=== PATIENT | male | born 1960 | race Caucasian/White ===

== ENCOUNTER 2016-04-17 09:49 | Outpatient (CLI) ==
[2015-11-26 13:37] VITALS: BMI 25.0
--- NOTE | 2016-04-17 11:37 | CT ---
EXAM: CT chest without contrast. HISTORY: Cough and chest congestion for 1 month. COMPARISON: 07/21/2015. TECHNIQUE: Multiple axial images of the chest were obtained without intravenous contrast. Images w ere reformatted in the sagittal and coronal planes. FINDINGS: Nonenlarged mediastinal and axillary lymph nodes are present. Overall evaluation for lym phadenopathy is limited due to lack of intravenous contrast. Heart size is normal. There is no per icardial effusion. Calcified granulomatous changes present. Very mild emphysematous changes again noted. No consolida tion, pleural effusion or pneumothorax identified. Limited images of the upper abdomen demonstrate a lateral left hepatic lobe cyst. Exophytic low-den sity left renal lesion measures 1.9 x 1.2 cm on axial image 63 which measures 17 HU. No acute osseo us abnormality identified. IMPRESSION: 1. No acute abnormality of the chest. 2. Indeterminate exophytic left renal lesion. Correlate with ultrasound.
== END 2016-04-17 09:50 | disposition home or self-care (01) ==
LOC: RAD 09:49
PROVIDERS: ATTEND General Practice
DX: R05 Cough (principal); I73.9 Peripheral vascular disease, unspecified; I10 Essential (primary) hypertension; Z72.0 Tobacco use; Z95.9 Presence of cardiac and vascular implant and graft, unspecified; Z98.890 Other specified postprocedural states

== ENCOUNTER 2016-04-24 07:39 | Outpatient (CLI) ==
[2015-11-26 13:37] VITALS: BMI 25.0
--- NOTE | 2016-04-24 09:11 | US ---
EXAM: Renal ultrasound HISTORY: Disorder of kidney and ureter, unspecified COMPARISON: CT chest 04/17/2016 TECHNIQUE: Renal ultrasound was performed FINDINGS: Right kidney measures 4.5 x 3.3 x 10.4 cm. Left kidney measures 6.1 x 4.7 x 0.8 cm. Ángel al cortical echogenicity is normal. No hydronephrosis or renal calculus large enough to cause acous tic shadowing. There is a 1.0 x 0.8 x 1.0 cm exophytic cystic lesion arising from the left superior kidney corresponding to the finding on CT, with internal echoes/complexity. Bladder is decompressed and not evaluated. IMPRESSION: 1. 1 cm complex cystic lesion left superior kidney, corresponding to the finding on CT, is indeterm inate. Correlation with CT or MRI renal protocol recommended. 2. Hydronephrosis.
== END 2016-04-24 07:40 | disposition home or self-care (01) ==
LOC: RAD 07:39
PROVIDERS: ATTEND General Practice
DX: N28.9 Disorder of kidney and ureter, unspecified (principal)
CPT/HCPCS: 76770

== ENCOUNTER 2016-04-29 16:29 | Outpatient (CLI) ==
[2015-11-26 13:37] VITALS: BMI 25.0
[2016-04-29 16:56] LABS: BASOPHILS # (AUTO) 0.1 K/uL (0-0.2); BASOPHILS % (AUTO) 0.6 % (0.0-3.0); EOSINOPHILS # (AUTO) 0.4 K/ul (0.0-0.7); EOSINOPHILS % (AUTO) 5.4 % (0.0-7.0); HEMATOCRIT 46.2 % (42.0-52.0); IMMATURE GRANULOCYTE % (AUTO) 0.4 % (0.0-5.0); LYMPHOCYTES # (AUTO) 2.2 K/uL (0.60-3.4); LYMPHOCYTES % (AUTO) 28.1 (10.0-50.0); MEAN CORPUSCULAR HEMOGLOBIN 31.7 pg (27.0-31.0); MEAN CORPUSCULAR HGB CONC 34.6 (31.8-35.4); MEAN CORPUSCULAR VOLUME 91.7 fl (80.0-94.0); MONOCYTES # (AUTO) 0.7 K/uL (0.4-2.0); MONOCYTES % (AUTO) 8.9 (0-10); NEUTROPHILS # (AUTO) 4.4 K/ul (2.0-6.9); NEUTROPHILS % (AUTO) 56.6; PLATELET COUNT 312 10^3/uL (140-440); RED BLOOD COUNT 5.04 10^6/ul (4.70-6.10); WHITE BLOOD COUNT 7.71 K/ul (4.2-10.2)
[2016-04-29 17:44] LABS: ALBUMIN/GLOBULIN RATIO 1.33; ANION GAP 15.9; BILIRUBIN,TOTAL 0.51 mg/dL (0.00-1.20); BUN/CREATININE RATIO 10.66; CALCIUM 9.4 mg/dL (8.2-10.2); CHOL/HDL RATIO 5.8 (4.5-6.4); CREATININE 0.75 mg/dL (0.60-1.10); POTASSIUM 3.9 mmol/L (3.5-5.1)
== END 2016-04-29 16:30 | disposition home or self-care (01) ==
LOC: LAB 16:29
PROVIDERS: ATTEND General Practice
DX: I10 Essential (primary) hypertension (principal); R73.9 Hyperglycemia, unspecified; R05 Cough; I73.9 Peripheral vascular disease, unspecified; G62.9 Polyneuropathy, unspecified; J44.9 Chronic obstructive pulmonary disease, unspecified; R06.02 Shortness of breath; Z79.899 Other long term (current) drug therapy; Z72.0 Tobacco use; Z95.9 Presence of cardiac and vascular implant and graft, unspecified; Z98.890 Other specified postprocedural states
CPT/HCPCS: 36415; 80053; 80061; 81001; 83036; 83880; 84443; 85025

== ENCOUNTER 2016-05-21 16:19 | Outpatient (CLI) | payer OTHER ==
[2015-11-26 13:37] VITALS: BMI 25.0
[2016-05-21 17:13] LABS: FLU INTERNAL QC INTERNAL QC VALID; RAPID FLU A NEGATIVE (NEGATIVE); RAPID FLU B NEGATIVE (NEGATIVE)
== END 2016-05-21 16:20 | disposition home or self-care (01) ==
LOC: LAB 16:19
PROVIDERS: ATTEND General Practice
DX: J02.9 Acute pharyngitis, unspecified (principal); R05 Cough
CPT/HCPCS: 87651; 87804; 87880

== ENCOUNTER 2016-06-11 08:27 | Outpatient (CLI) ==
[2015-11-26 13:37] VITALS: BMI 25.0
--- NOTE | 2016-06-11 14:36 | MRI ---
EXAM: Lumbar spine MRI without contrast. HISTORY: Lumbar radiculopathy. COMPARISON: Lumbar spine MRI 08/19/2013. TECHNIQUE: Multiplanar, multisequence MR images were acquired of the lumbar spine without contrast. FINDINGS: Five lumbar-type vertebra are present. There is minor thoracolumbar dextroscoliosis cent ered at L1-2 and minor levoscoliosis at L3-4. There are postoperative changes of an anterior and po sterior longitudinal interbody fusion at L5-S1. Metallic artifact is present consistent with anterio r interbody screw and plate fixation and posterior posterior pedicle screw and papi fixation. This p roduces distortion which limits evaluation at this level. The lumbar vertebra are generally normal i n height and intrinsic bone marrow signal. There is minor lumbar ventral spondylosis. There is end plate irregularity at T11-12 and T12-L1 and small chronic Schmorl's nodes are present from T11 to L2 . At L1-2, there is mild endplate irregularity with moderate disc space narrowing and disc desiccat ion. Mild endplate irregularity is present at L2-3 and there is mild disc space narrowing at L4-5. Conus medullaris ends at L2 and has normal signal intensity. The partially visualized liver, spleen, adrenal glands and kidneys are unremarkable. The probable l eft renal cysts is not identified on the current study. T12-L1: The intervertebral disc is normal. L1-2: The intervertebral disc is normal. L2-3: There is a minor disc bulge that minimally narrows the inferior left neural foramen and mild bilateral hypertrophic facet arthropathy and ligamentum flavum hypertrophy. There is no central can al stenosis. L3-4: There is a minor physiologic disc bulge and mild bilateral hypertrophic facet arthropathy and ligamentum flavum hypertrophy. There is mild to moderate bilateral foraminal stenosis. L4-5: There is a mild disc bulge that is asymmetric to the right and bilateral facet hypertrophy. Metallic artifact produces distortion which limits evaluation of the disc and neural foramina. Ther e is probable moderate bilateral foraminal stenosis. L5-S1: Metallic artifact produces distortion which limits evaluation at this level. There is a lef t lateral spondylitic ridge which narrows the foramen and causes probable moderate left foraminal st enosis. The right neural foramen cannot be evaluated. IMPRESSION: 1. Status post anterior and posterior spinal fusion at L5-S1. Metallic artifact produces distortio n which limits evaluation at this level. There is probable moderate left foraminal stenosis. 2. Mild to moderate bilateral L3-4 and probable moderate bilateral L4-5 and left L5-S1 foraminal st enosis. 3. No lumbar disc herniations. 4. Mild endplate irregularity with small chronic Schmorl's nodes from T11 to L2.
== END 2016-06-11 08:28 | disposition home or self-care (01) ==
LOC: RAD 08:27
PROVIDERS: ATTEND General Practice
DX: M54.17 Radiculopathy, lumbosacral region (principal)

== ENCOUNTER 2016-09-02 16:22 | Outpatient (CLI) ==
[2015-11-26 13:37] VITALS: BMI 25.0
[2016-09-02 17:06] LABS: ALBUMIN 3.9 g/dL (3.4-5.0); ALBUMIN/GLOBULIN RATIO 1.5; ANION GAP 12.5; BILIRUBIN,TOTAL 0.75 mg/dL (0.00-1.20); BUN/CREATININE RATIO 21.83; CALCIUM 8.4 mg/dL (8.2-10.2); CHOL/HDL RATIO 6.8 (4.5-6.4); CREATININE 0.87 mg/dL (0.60-1.10); POTASSIUM 4.5 mmol/L (3.5-5.1); TOTAL PROTEIN 6.5 g/dL (6.4-8.2)
== END 2016-09-02 16:23 | disposition home or self-care (01) ==
LOC: LAB 16:22
PROVIDERS: ATTEND General Practice
DX: M89.9 Disorder of bone, unspecified (principal); I10 Essential (primary) hypertension; I73.9 Peripheral vascular disease, unspecified; G62.9 Polyneuropathy, unspecified; N13.30 Unspecified hydronephrosis; N28.1 Cyst of kidney, acquired; R05 Cough; Z12.5 Encounter for screening for malignant neoplasm of prostate; Z79.899 Other long term (current) drug therapy; Z72.0 Tobacco use; Z98.890 Other specified postprocedural states; Z95.9 Presence of cardiac and vascular implant and graft, unspecified
CPT/HCPCS: 36415; 80053; 80061; 82306

== ENCOUNTER 2016-12-08 05:14 | Emergency (ER) | payer OTHER ==
[2016-12-08 05:21] VITALS: TEMP 97.6; BMI 29.3
[2016-12-08] MEDS ORDERED: ZOFRAN 4 MG/2 ML IM STA (05:37)
[2016-12-08] MEDS ORDERED: MORPHINE 2 MG/ML SYRINGE IM STA (05:37)
[2016-12-08] MEDS ORDERED: CATAPRES PO STA (05:37)
--- NOTE | 2016-12-08 05:42 | ED.PDOC ---
General ED Provider: Dr. KIMMIE SOLIZ Chief Complaint: Headache Stated Complaint: BP been elevated, having some headaches, no blurry vision. also has coughing, congested, no chest pain, not short of breath. Time Seen by Physician: 05:40 Mode of Arrival: Walk-In Information Source: Patient [facility] and Triage Documentation Reviewed and Agree: Yes Cardiovascular Complaint Exam - Hypertension Complaint/Exam Symptoms Are: Still present Timing: Constant Aggravating: Reports: None Alleviating: Reports: None Associated Signs and Symptoms: Denies: Chest pain, Vision changes, Anxiety, Recent stress, Headache, Numbness, Tingling, Weakness, Dizziness, Short of air, Swelling Related History: Reports: Similar episode Related Surgical History: Reports: None Cardiac Risk Factors: Reports: Hypertension Recent Change in Medications: No A/V Nicking: No Papilledema Present: No JVD Present: No Carotid Bruit Present: No Differential Diagnoses: Hypertension Quality Indicator For Non-Traumatic Chest Pain/Syncope: EKG Performed Review of Systems - Review Of Systems Constitutional: Reports: No symptoms Eyes: Reports: No symptoms Ears, Nose, Mouth, Throat: Reports: Nose discharge Respiratory: Reports: Cough Cardiac: Reports: No symptoms GI: Reports: No symptoms : Reports: No symptoms Musculoskeletal: Reports: No symptoms Skin: Reports: No symptoms Neurological: Reports: Headache Endocrine: Reports: No symptoms Hematologic/Lymphatic: Reports: No symptoms All Other Systems: Reviewed and Negative Past Medical History - Past Medical History Previously Healthy: Yes Endocrine: Reports: None Cardiovascular: Reports: Hypertension Respiratory: Reports: COPD Hematological: Reports: None Gastrointestinal: Reports: None Genitourinary: Reports: None Neuro/Psych: Reports: None Musculoskeletal: Reports: None Cancer: Reports: None - Surgical History General Surgical History: Reports: Back Surgery - Family History Family History: Reports: Unknown - Social History Smoking Status: Current every day smoker Smoking Cessation Counseling Time: > 3 min - 10 min Hx Substance Use: No Alcohol Screening: None - Immunizations Tetanus Shot up to Date: Yes Physical Exam - Physical Exam Appearance: Ill-appearing, Obese Eyes: NEMESIO, EOMI, Conjunctiva clear ENT: Ears normal, Nose normal, Oropharynx normal Respiratory: Airway patent, Breath sounds clear, Breath sounds equal, Respirations nonlabored Cardiovascular: RRR, Pulses normal, No rub, No murmur GI/: Soft, Nontender, No masses, Bowel sounds normal, No Organomegaly Musculoskeletal: Normal strength, ROM intact, No edema, No calf tenderness Skin: Warm, Dry, Normal color Neurological: Sensation intact, Motor intact, Reflexes intact, Cranial nerves intact, Alert, Oriented Psychiatric: Affect appropriate, Mood appropriate Interpretation - EKG Interpretation Time of EKG #1: 05:55 Rate: Normal Rhythm: Sinus Ectopy: None ST Segment: Normal Re-Evaluation - Re-Evaluation Time of Re-Evaluation: 06:22 Status: Improved Critical Care Note - Critical Care Note Total Time (mins): 0 Course - Course Hematology/Chemistry: 12/08/16 05:53 Orders, Labs, Meds: Lab Review 12/08/16 05:53 WBC 8.51 RBC 4.97 Hgb 15.8 Hct 45.9 MCV 92.4 MCH 31.8 H MCHC 34.4 RDW Coeff of Ricardo 12.6 Plt Count 284 Immature Gran % (Auto) 0.2 Neut % (Auto) 58.8 Lymph % (Auto) 25.0 Sheridan % (Auto) 10.8 H Eos % (Auto) 4.7 Baso % (Auto) 0.5 Immature Gran # (Auto) 0.0 Neut # 5.0 Lymph # 2.1 Sheridan # 0.9 Eos # 0.4 Baso # 0.0 Orders Category Date Time Status EKG-(ED ONLY) Stat CARDIO 12/08/16 06:21 Ordered CBC W/ AUTO DIFF Stat LAB 12/08/16 05:53 Completed COMPREHENSIVE METABOLIC PANEL Stat LAB 12/08/16 06:01 Received CREATINE KINASE Stat LAB 12/08/16 06:01 Received TROPONIN I Stat LAB 12/08/16 06:01 Received Clonidine HCl [Catapres] MEDS 12/08/16 05:37 Discontinued 0.2 mg PO ONCE STA Morphine Sulfate [Morphine 2 mg/ml Syringe] MEDS 12/08/16 05:37 Discontinued 2 mg IM ONCE STA Ondansetron HCl/Pf [Zofran 4 mg/2 ml] MEDS 12/08/16 05:37 Discontinued 4 mg IM ONCE STA CT HEAD W/O CONTRAST Stat RADS 12/08/16 05:37 Ordered Medications Discontinued Medications Generic Name Dose Route Start Last Admin Trade Name Freq PRN Reason Stop Dose Admin Clonidine 0.2 mg 12/08/16 05:37 12/08/16 06:19 Catapres PO 12/08/16 05:38 0.1 mg ONCE STA Administration Morphine Sulfate 2 mg 12/08/16 05:37 12/08/16 05:49 Morphine 2 Mg/Ml Syringe IM 12/08/16 05:38 2 mg ONCE STA Administration Ondansetron HCl 4 mg 12/08/16 05:37 12/08/16 05:46 Zofran 4 Mg/2 Ml IM 12/08/16 05:38 4 mg ONCE STA Administration Vital Signs: Temp Pulse Resp BP Pulse Ox 12/08/16 05:14 97.6 F 78 20 176/107 H 94 L JULIA Risk Score JULIA Risk Score: Risk Score Odds of by 30D 0 0.1 (0.1-0.2) 1 0.3 (0.2-0.3) 2 0.4 (0.3-0.5) 3 0.7 (0.6-0.9) 4 1.2 (1.0-1.5) 5 2.2 (1.9-2.6) 6 3.0 (2.5-3.6) 7 4.8 (3.8-6.1) Departure - Departure Time of Disposition: 06:25 Disposition: HOME SELF-CARE Discharge Problem: URTI (acute upper respiratory infection) Hypertension Qualifiers: Hypertension type: essential hypertension Qualified Code(s): I10 - Essential ( primary) hypertension Condition: Good Pt referred to PMD for follow-up: Yes Additional Instructions: Keep checking the BP Risk of stroke discussed Take medication with food Have f/u PMD Dr hunt in 3 days Prescriptions: Cephalexin [Keflex] 500 mg PO Q12HR #14 capsule Codeine/Promethazine Syrup [Phenergan with Codeine 6.25/10 mg/5 ml] 5 ml PO Q8H #1 bottle Prednisone 10 mg PO BIDWM #14 tablet Allergies/Adverse Reactions: Allergies No Known Allergies Allergy (Unverified 12/08/16 05:19) Home Medications: Ambulatory Orders Albuterol Sulfate 0.083% Neb [Albuterol 0.083% Neb] 1 vial NEB RTQ6H PRN Albuterol Sulfate [Proair Hfa] 2 puff IH Q6H PRN 10/22/16 Oxycodone HCl/Acetaminophen [Percocet 10-325 mg Tablet] 1 tab PO TID 10/22/16 Cephalexin [Keflex] 500 mg PO Q12HR #14 capsule 12/08/16 Clopidogrel Bisulfate [Clopidogrel] 75 mg PO DAILY 12/08/16 Codeine/Promethazine Syrup [Phenergan with Codeine 6.25/10 mg/5 ml] 5 ml PO Q8H #1 bottle 12/08/16 Cyclobenzaprine HCl 10 mg PO TID PRN 12/08/16 Diclofenac Sodium 75 mg PO DAILY 12/08/16 Prednisone 10 mg PO BIDWM #14 tablet 12/08/16 Tamsulosin HCl [Flomax] 0.4 mg PO DAILY 12/08/16 Disposition Discussed With: Patient
[2016-12-08 05:56] LABS: BASOPHILS % (AUTO) 0.5 % (0.0-3.0); EOSINOPHILS # (AUTO) 0.4 K/ul (0.0-0.7); EOSINOPHILS % (AUTO) 4.7 % (0.0-7.0); HEMATOCRIT 45.9 % (42.0-52.0); HEMOGLOBIN 15.8 g/dl (14.0-18.0); IMMATURE GRANULOCYTE % (AUTO) 0.2 % (0.0-5.0); LYMPHOCYTES # (AUTO) 2.1 K/uL (0.60-3.4); MEAN CORPUSCULAR HEMOGLOBIN 31.8 pg (27.0-31.0); MEAN CORPUSCULAR HGB CONC 34.4 (31.8-35.4); MEAN CORPUSCULAR VOLUME 92.4 fl (80.0-94.0); MONOCYTES # (AUTO) 0.9 K/uL (0.4-2.0); MONOCYTES % (AUTO) 10.8 (0-10); NEUTROPHILS % (AUTO) 58.8; PLATELET COUNT 284 10^3/uL (140-440); RED BLOOD COUNT 4.97 10^6/ul (4.70-6.10); WHITE BLOOD COUNT 8.51 K/ul (4.2-10.2)
[2016-12-08 06:21] LABS: ALANINE AMINOTRANSFERASE 21 U/L (12-78); ALBUMIN 3.5 g/dL (3.4-5.0); ALBUMIN/GLOBULIN RATIO 1.09; ALKALINE PHOSPHATASE 79 U/L (50-136); ANION GAP 15.1; ASPARTATE AMINO TRANSFERASE 14 U/L (15-37); BILIRUBIN,TOTAL 0.49 mg/dL (0.00-1.20); BLOOD UREA NITROGEN 13 mg/dL (7-18); BUN/CREATININE RATIO 16.04; CALCIUM 9.2 mg/dL (8.2-10.2); CARBON DIOXIDE 25 mmol/L (21-32); CHLORIDE 103 mmol/L (98-107); CREATINE KINASE 62 U/L; CREATININE 0.81 mg/dL (0.60-1.10); GLUCOSE 152 mg/dL (70-100); POTASSIUM 4.1 mmol/L (3.5-5.1); SODIUM 139 mmol/L (136-145); TOTAL PROTEIN 6.7 g/dL (6.4-8.2)
[2016-12-08] MEDS ORDERED: DECADRON 4 MG/ML SDV IM STA (06:22)
[2016-12-08 06:42] VITALS: BP 153/98
== END 2016-12-08 06:46 | disposition home or self-care (01) ==
LOC: ED 05:14
DX: J06.9 Acute upper respiratory infection, unspecified (principal); I10 Essential (primary) hypertension; F17.210 Nicotine dependence, cigarettes, uncomplicated; Z79.899 Other long term (current) drug therapy
CPT/HCPCS: 36415; 80053; 82550; 84484; 85025; 93005; 93010; 96372; 99283

== ENCOUNTER 2016-12-23 16:25 | Outpatient (CLI) ==
[2016-12-23 16:34] LABS: ADD URINE MICROSCOPIC NO; BILIRUBIN,URINE Negative (NEGATIVE); KETONES,URINE Negative (NEGATIVE); LEUKOCYTE ESTERASE ,URINE Negative (NEGATIVE); NITRITE,URINE Negative (NEGATIVE); PROTEIN,URINE Negative (NEGATIVE); URINE, BLOOD Negative (NEGATIVE)
== END 2016-12-23 16:26 | disposition home or self-care (01) ==
LOC: LAB 16:25
PROVIDERS: ATTEND General Practice
DX: R80.9 Proteinuria, unspecified (principal)
CPT/HCPCS: 81001

== ENCOUNTER 2017-02-04 16:34 | Outpatient (CLI) ==
--- NOTE | 2017-02-04 17:12 | DI ---
EXAM: Right shoulder three view HISTORY: Pain in right shoulder COMPARISON: 07/23/2013 FINDINGS: No acute fracture or dislocation. Chronic remodeling mid to distal clavicle, consistent w ith old healed fracture. Mild osteoarthritis acromioclavicular and glenohumeral joints. No focal so ft tissue abnormality IMPERSSION: Mild osteoarthritis
== END 2017-02-04 16:35 | disposition home or self-care (01) ==
LOC: RAD 16:34
PROVIDERS: ATTEND Emergency Medicine
DX: M25.511 Pain in right shoulder (principal)

== ENCOUNTER 2017-02-10 14:28 | Outpatient (CLI) ==
--- NOTE | 2017-02-10 21:44 | MRI ---
EXAM: MRI right shoulder without contrast. HISTORY: Right shoulder pain. No known injury. No right shoulder surgery reported.. TECHNIQUE: Using a local coil on a high field strength magnet multiplanar multisequence MRI was perf ormed of the right shoulder without intravenous or intra-articular gadolinium contrast.. COMPARISON: Three-view plain film examination right shoulder 02/04/2017. FINDINGS: A Type I I acromion. Coracoacromial ligament/arch intact without definitive thickening. Right acromioclavicular joint degenerative arthrosis/osteoarthrosis. Deltoid musculature normal sign al intensity. No appreciable free fluid subacromial/subdeltoid bursa. Muscle bulk of the rotator cuff shows no overt atrophy or acute muscle strain . Supraspinatus tendin osis. Bursal sided fraying.. Approximate 14 mm AP by 18 mm in length area of diminutive supraspinat us cuff fibers over the insertion and critical zone compatible with partial thickness tearing involvi ng at least 50% thickness of the cuff. I do not see a definitive full-thickness tear component. P osterior to this level intact infraspinatus and teres minor tendon fibers. Anterior intact subscapul yanna tendon fibers. The long head of the biceps tendon shows intact fibers located in expected posit ion within the bicipital groove and within normal limits signal intensity and morphology. The right humeral head within normal limit in morphology and seated. No right glenohumeral joint cent ered subchondral bone marrow edema or bone erosions. Physiologic amount fluid right glenohumeral erick nt. Right glenoid labrum grossly intact on this non-arthrographic examination. IMPRESSION: Right acromioclavicular joint degenerative arthrosis/osteoarthrosis. Supraspinatus tendinosis. Bursal sided fraying. Approximate 14 x 18 mm area of partial thickness te aring supraspinatus involving at least 50% thickness of the cuff. No definitive full-thickness tear c omponent. No appreciable free fluid subacromial/subdeltoid bursa.
== END 2017-02-10 14:29 | disposition home or self-care (01) ==
LOC: RAD 14:28
PROVIDERS: ATTEND Emergency Medicine
DX: M25.511 Pain in right shoulder (principal)

== ENCOUNTER 2017-04-14 14:40 | Outpatient (CLI) ==
--- NOTE | 2017-04-14 15:36 | US ---
EXAM: ULTRASOUND LOWER EXTREMITY VENOUS DOPPLER EXAM HISTORY: Right leg pain. FINDINGS: Bilateral lower extremity venous Doppler exam. Real time springer-scale, Doppler spectral bisi sis and color-flow Doppler imaging performed. The veins targeted for evaluation include the common f emoral, greater saphenous, profundus, femoral, popliteal, peroneal, anterior tibial and posterior tib ial. The evaluated veins demonstrated normal spontaneous flow and compression without evidence of t hrombosis. No valvular reflux. IMPRESSION: No venous thrombosis identified within the areas evaluated.
== END 2017-04-14 14:41 | disposition home or self-care (01) ==
LOC: RAD 14:40
PROVIDERS: ATTEND General Practice
DX: M79.605 Pain in left leg (principal); M79.604 Pain in right leg; M79.89 Other specified soft tissue disorders; I10 Essential (primary) hypertension; Z79.899 Other long term (current) drug therapy
CPT/HCPCS: 36415; 80053; 81001; 83036; 85025

== ENCOUNTER 2017-04-18 14:23 | Outpatient (CLI) ==
--- NOTE | 2017-04-18 15:01 | CT ---
EXAM: CT chest without contrast. HISTORY: Pulmonary nodule follow-up. COMPARISON: 10/22/2016, 04/17/2016, 07/21/2015. TECHNIQUE: Multiple axial images of the chest were obtained without intravenous contrast. Images we re reformatted in the sagittal and coronal planes. FINDINGS: Left axillary lymph node measures 1 cm short axis on axial image 15. Multiple nonenlarged mediastinal lymph nodes present. Calcified left hilar lymph nodes noted. These lymph nodes are sta ble. Heart size is normal. There is no pericardial effusion. Mild atherosclerotic calcifications a re present. Right basilar nodules noted on the prior study have resolved. Calcified granulomatous changes noted. No consolidation, pleural effusion or pneumothorax identified. Limited images of the upper abdomen demonstrate right nephrolithiasis in stable exophytic left renal lesion is previously described. No acute osseous abnormality detected. IMPRESSION: Resolution of right basilar nodules. No acute cardiopulmonary process.
== END 2017-04-18 14:24 | disposition home or self-care (01) ==
LOC: RAD 14:23
PROVIDERS: ATTEND General Practice
DX: R91.1 Solitary pulmonary nodule (principal); R06.02 Shortness of breath
CPT/HCPCS: 36415; 83880

== ENCOUNTER 2017-04-19 17:19 | Inpatient (IN) | payer OTHER ==
[2017-04-19 17:52] VITALS: BMI 30.7
[2017-04-19] MEDS ORDERED: FLEXERIL PO PRN (18:30)
[2017-04-19] MEDS ORDERED: ALBUTEROL 0.083% NEB NEB PRN (18:30)
[2017-04-19] MEDS ORDERED: PROAIR HFA IH PRN (18:30)
[2017-04-19] MEDS ORDERED: COREG ONE (20:28)
[2017-04-19] MEDS: PERCOCET 10-325 PO PRN (20:31)
[2017-04-19] MEDS ORDERED: COREG PO SCH (21:00)
[2017-04-20] MEDS: PERCOCET 10-325 PO PRN (05:06)
[2017-04-20] MEDS ORDERED: NON-FORMULARY MEDICATION (Fluticasone Propionate [Flonase Allergy Relief] 9.9 ML) NS SCH (09:00)
[2017-04-20] MEDS: FLONASE NAS SCH (09:47)
[2017-04-20] MEDS: COREG PO SCH ×2 (09:48→16:43)
[2017-04-20] MEDS: PLAVIX PO SCH (09:48)
[2017-04-20] MEDS ORDERED: DECADRON 4 MG/ML SDV IM STA (11:14)
[2017-04-21] MEDS: PERCOCET 10-325 PO PRN ×2 (05:09→08:56)
[2017-04-21] MEDS: COREG PO SCH (08:06)
[2017-04-21] MEDS: FLONASE NAS SCH (08:06)
[2017-04-21] MEDS: PLAVIX PO SCH (08:06)
--- NOTE | 2017-04-21 08:41 | HP ---
CHIEF COMPLAINT: Edema of both feet and legs, feeling tired and increasingly, shortness of breath on exertion. HISTORY OF PRESENT ILLNESS: This patient was seen a week ago at the office prior to this admission because of swelling of both lower extremities. He was concerned. The patient also had been feeling tired and increasingly so. He does use oxygen at night prescribed by another provider. This patient had previous pulmonary nodules and so a CT scan of the chest was done 04/18/2017. The scan does not indicate any acute cardiopulmonary processes and the nodules that were present previously were resolved. A BNP was ordered and it is within normal, 30. Because of the continued fatigue and the history of severe peripheral arterial disease, smoking and previous chest pain, that I felt maybe this patient may have some cardiovascular problems causing the increasing fatigue. The patient was then advised admission for further examination and testing. The patient still continues to smoke in spite of several repeated admonitions not to. This patient has significant pulmonary problems from smoking, but for some reason he is not serious about it. He did tell me that for some reason people has to and so his smoking maybe the cause of his demise. I did tell him that sure everybody is going to , but it makes some difference whether you are crawling to the finish or you are walking or running to the finish line. PAST PERSONAL HISTORY: The patient had tonsillectomy as a child. Angioplasty of the right lower extremity arteries with stent. History of DVT. Back surgery 2014. Stent on the right leg placed in 2012 and again in 2013. He had a colonoscopy 2015. He had been to the neurosurgeon for his back problem. FAMILY HISTORY: Father had cardiovascular problems, as well as CVA. Mother had malignancy and diabetes mellitus. Sister has malignancy and brother had cardiac problems, myocardial infarction and led to his demise. SOCIAL HISTORY: The patient is and resides with his . He has retired from work because of his back problems. He smokes cigarettes and continues to smoke and now uses oxygen at night. He is complaining of fatigue. HOME MEDICATIONS: Prior to this admission: Albuterol sulfate 0.083% for nebulization every 6 hours as needed Carvedilol 25 mg tablet twice a day Flexeril 10 mg twice a day as needed Flonase nasal, two sprays to each nostril once a day as needed Plavix 75 mg daily Oxycodone/APAP 10/325 mg one tablet two times a day as needed Albuterol Sulfate HFA one inhalation prn for exacerbation ALLERGIES: No known drug allergies. REVIEW OF SYSTEMS: CONSTITUTIONAL: The patient is complaining of more fatigue, but no fever or chills. 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 VISUAL: Denies any blurred vision, double vision or transient loss of vision. AUDITORY: Hearing is adequate. Denies any tinnitus or pain or drainage. RESPIRATORY: The patient is known to have chronic obstructive lung disease and is on oxygen at night. He still smokes. He does have some cough, mostly nonproductive. He is using a beta agonist medication for his COPD. CARDIOVASCULAR: The patient denies any chest pain, although he had in the past. He is short of breath when exerting. He denies any tightness in the chest. This patient is on Plavix because of the peripheral arterial disease and was treated with angioplasty and stent. GASTROINTESTINAL: The patient denies any problems swallowing solids or liquids. No nausea, anorexia, abdominal pain or change in bowel habits. GENITOURINARY: Denies any pain or urination or frequency. MUSCULOSKELETAL: The patient has chronic back pain and is taking narcotic analgesic medications. He had been to a neurosurgeon for his back problem. ENDOCRINE: The patient's sugar is elevated, as well as the A1C, but he is not symptomatic. INTEGUMENT: Denies any rash or pruritus. HEMATOLOGIC: No history of prolonged bleeding. PSYCHIATRIC: Affect appears to be adequate. PHYSICAL EXAMINATION: GENERAL: We have a 57 year old male admitted to the hospital because of increasing fatigue, swelling of both lower extremities including the feet, increasing shortness of breath, severe peripheral arterial disease and previous history of chest pain. HEAD: Unremarkable. FACE: Symmetrical and equal with no facial weakness. No tenderness to palpation in the frontal or maxillary sinus areas under pressure. EYES: Pupils equal/reactive to light about 3 mm in size. Conjunctivae not pale. Sclerae not icteric. MOUTH: Unremarkable. THROAT: No inflammation, tumors or exudate. NECK: No masses. No bruit. No tenderness. No rigidity. CHEST: Essentially symmetrical and equal with good expansion. LUNGS: Breath sounds are diminished in both sides. No rales or wheezing. HEART: Audible and regular with good tones. No murmurs. ABDOMEN: Flat, soft with no remarkable tenderness. No guarding. Bowel sounds are active. No masses palpable and no bruit. EXTERNAL GENITALIA: Not examined. RECTAL: Not done. The patient had colonoscopy 2015. LOWER EXTREMITIES: Essentially symmetrical and equal with edema of both feet, as well as legs. The patient had 2+ pitting edema. All the pedal pulses are absent. UPPER EXTREMITIES: Symmetrical and equal. ASSESSMENT: 1. PROGRESSIVE FATIGUE, ETIOLOGY UNDETERMINED 2. PROGRESSIVE EXERTIONAL DYSPNEA 3. HISTORY OF CHEST PAIN 4. CHRONIC OBSTRUCTIVE PULMONARY DISEASE, MODERATE TO SEVERE REQUIRING NOCTURNAL OXYGEN SUPPLEMENTATION 5. CHRONIC TOBACCO USE AND ABUSE, PERSISTENT 6. 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 FAILED BACK SURGERY SYNDROME 8. HYPOXEMIA 9. HYPERCARBIA 10. ELEVATED BLOOD SUGAR AND ELEVATED A1C MTDD
--- NOTE | 2017-04-21 09:55 | PN ---
DATE OF VISIT: 04/20/17 The patient, today, is alert without any respiratory distress and no cyanosis at rest. LUNGS: Still has diminished breath sounds, but no rales or wheezing. HEART: Normal sinus rhythm. The patient was seen by a consulting curing finisher today and we will plan to perform a stress test tomorrow. He did undergo an echocardiogram today. The patient's lipid panel is abnormal with markedly HDL. His blood sugar yesterday was 141 and his A1C today is 6.4. His CK was normal, as well as Troponin. His arterial blood gases on admission was abnormal. Oxygen saturation 93, FIO2 21, PCO2 52.7, PO2 69. pH 7.405. If his stress testing is negative, he will be discharged. Further discussion with regards to changes in lifestyle including habits. This probably would be initiated also on a diabetes medication, although he will be tried first on a diet management to see if the problem would improve. This patient is not doing activity very much at home. GUERDA
[2017-04-21 10:03] VITALS: TEMP 97.7
--- NOTE | 2017-04-21 11:35 | STRESSECHO ---
Date of Test: 04/21/17 Reason for Exam: SOB, HYPERTENSION, COPD Ordering Physician: DR. SHADIA TEIXEIRA Current Medications: PROAIR, COREG, PLAVIX, FLEXERIL, FLONASE, PERCOCET Physical Findings: S1, S2, NO S3 Resting EKG: SINUS RHYTHM, NO ACUTE CHANGES Target Heart Rate: 138/163 STAGE MPH/GRADE HEART RATE BPM BLOOD PRESSURE MMHG RHYTHM S-T SEGMENT +/- UP DOWN SYMPTOMS,COMMENTS At Rest 75 128/92 SR X NONE 1 1.7/10% 105 160/90 SR X NONE 2 2.5/12% 3 3.4/14% 4 4.2/16% 5 5.0/18% Immediately after 115 SR X SOB, CLAUDICATION Durations of Exercise: 3:34 Maximum Heart Rate Reached: 115 Reason for Termination: SOB/ CLAUDICATION 3 MINUTES POST EXERCISE: HR 80 BPM, SINUS RHYTHM, S-T SEGMENT +/-, NO COMMENTS OR SYMPTOMS INTERPRETATION: 95% OXYGEN SATURATION WITH EXERCISE ON ROOM AIR METS 5.8 1. NON DIAGNOSTIC FOR ISCHEMIC ST-T WAVE CHANGES (DID NOT REACH TARGET HEART RATE) HEART RATE 70 BPM TO 115 BPM WITH EXERCISE 2. NO CHEST PAIN OR DISCOMFORT 3. NO ARRHYTHMIA'S 4. BLOOD PRESSURE RESPONSE: BORDERLINE HYPERTENSION AT REST AND WITH EXERCISE NORMAL LEFT VENTRICULAR CONTRACTILITY--RESTING AND POST EXERCISE MTDD
--- NOTE | 2017-04-21 11:39 | ECHOSTRESS ---
Date of Exam: 04/21/17 Ordering Physician: DR. SHADIA TEIXEIRA Reason for Echo: SOB, HYPERTENSION, COPD M-Mode Normal Adult Results LV Dimensions Normal Adult Results AoV Opening excursions >1.6 LVEDD-base- 3.5-5.8 Ao root dimensions 2.0-3.7 LVESD-base- 3.1-4.6 L. Atrium dimensions 1.9-3.8 Post. Wall thickness 0.8-1.1 IV septum (thickness) 0.7-1.2 Post. Wall excursion 0.72-1.3 Septal motion Systolic motion R. Ventricular cavity 1.5-2.0 LVEF 60% Paradoxical septal wall motion 2-D: NORMAL LEFT VENTRICULAR CONTRACTILITY--RESTING AND POST EXERCISE M-MODE: MV: AV: TV: PV: CHAMBER SIZE: WALL MOTION: NORMAL LEFT VENTRICULAR CONTRACTILITY--RESTING AND POST EXERCISE PERICARDIUM: INTERPRETATION: 1. HEART RATE 70 BPM TO 115 BPM WITH EXERCISE 2. NORMAL LEFT VENTRICULAR CONTRACTILITY--RESTING AND POST EXERCISE MTDD
--- NOTE | 2017-04-21 12:02 | ECHO2D ---
Date of Exam: 04/20/17 Ordering Physician: DR. SHADIA TEIXEIRA Room # : 114 Reason for Echo: SOB, HYPERTENSION, COPD M-Mode Normal Adult Results LV Dimensions Normal Adult Results AoV Opening excursions >1.6 >1.6 LVEDD-base- 3.5-5.8 4.5 Ao root dimensions 2.0-3.7 4.1 LVESD-base- 3.1-4.6 L. Atrium dimensions 1.9-3.8 3.2 Post. Wall thickness 0.8-1.1 1.0 IV septum (thickness) 0.7-1.2 1.1 Post. Wall excursion 0.72-1.3 NORMAL Septal motion NORMAL Systolic motion R. Ventricular cavity 1.5-2.0 3.0 LVEF 60% 58% Paradoxical septal wall motion NORMAL 2-D : 2-D M Mode Echocardiogram was performed using apical four chamber and left parasternal long and short axis views. Mitral, tricuspid and aortic valves appear to be normal. Contractility of the left ventricle seems to be normal, so is the cavity size. Left atrial cavity size and aortic root appear to be normal. There is no pericardial effusion. There is no thrombus noted in the left ventricular or left aortic cavity. No mitral valve prolapse noted. M-MODE: MV: NORMAL AV: NORMAL TV: NORMAL PV: CHAMBER SIZE: NORMAL WALL MOTION: NORMAL PERICARDIUM: NORMAL INTERPRETATION: 1. NORMAL VALVES 2. NORMAL LEFT VENTRICULAR CONTRACTILITY 3. ENLARGED RIGHT VENTRICLE CAVITY MTDD
[2017-04-21] MEDS ORDERED: ASPIRIN CHEWABLE PO SCH (14:00)
[2017-04-21 14:54] VITALS: BP 106/74
[2017-04-21] MEDS ORDERED: LIPITOR PO SCH ×2 (21:00)
--- NOTE | 2017-04-22 13:37 | CONS ---
DATE OF SERVICE: 04/21/17 CONSULT FOLLOWUP SUBJECTIVE: 57 year old white male hospitalized with fatigue, bilateral leg swelling, shortness of breath of several months duration. The patient has several risk factors for coronary artery disease like sedentary lifestyle, smoking, dyslipidemia, peripheral arterial disease. The patient is not having any exertion chest discomfort or pain. REVIEW OF SYSTEMS: CONSTITUTIONAL: No night sweats. No fatigue, malaise, lethargy. No fever or chills. HEENT: Eyes: No visual changes. No eye pain. No eye discharge. ENT: No runny nose. No epistaxis. No sinus pain. No sore throat. No odynophagia. No ear pain. No congestion. RESPIRATORY: No cough, no congestion. No hemoptysis. CARDIOVASCULAR: No angina symptoms. No CHF symptoms. No atypical chest pain for CAD. No palpitations. Shortness of breath. GASTROINTESTINAL: No abdominal pain. No nausea or vomiting. No diarrhea or constipation. No hematemesis. No hematochezia. GENITOURINARY: No urgency. No frequency. No dysuria. No hematuria. No obstructive symptoms. No discharge. No pain. No significant abnormal bleeding. MUSCULOSKELETAL: No musculoskeletal pain. No joint swelling. No arthritis. NEUROLOGICAL: No headache. No neck pain. No syncope. No seizures. No dizziness. PSYCHIATRIC: Not anxious. No depression. No suicidal thoughts. No homicidal thoughts. SKIN: No rash. No lesions. No wounds. ENDOCRINE: No unexplained weight loss. No weight gain. HEMATOLOGIC/LYMPHATIC: No anemia. No purpura. No petechiae. No prolonged or excessive bleeding. No palpable lymph nodes. PHYSICAL EXAMINATION: GENERAL: The patient is , lying/sitting in bed in no distress. VITAL SIGNS: Temperature 97.4, pulse 73, respiratory rate 14, blood pressure 100 /62 and pulse ox 98%. HEENT: Head normocephalic, atraumatic. Eyes: Extraocular muscles are intact. Pupils are equal, round and reactive to light and accommodation. Ears: No lesions. Nose appeared normal. Throat: No exudate or erythema. NECK: Supple. No JVD, no carotid bruit. No lymphadenopathy or thyromegaly. LUNGS: Decreased breath sounds bilaterally with auscultation of lungs. Percussion note normal. Chest symmetrical. HEART: S1, S2, no S3. No murmurs. No cyanosis or clubbing. No ascites. Pulses: Dorsalis pedis and posterior tibial pulses +1 to +2 both sides. ABDOMEN: Soft. Nontender. Bowel sounds active. No CVA tenderness. No mass felt. EXTREMITIES: No edema. Full range of motion of all extremities, equal. NEUROLOGIC: No focal deficit. Cranial nerves II through XII are grossly intact. No headache, no double vision or headache. SKIN: Not dry. Intact. Turgor - normal. LYMPHATIC: No palpable lymph nodes/no lymphedema. MUSCULOSKELETAL: Normal joints with no swelling. Muscle tone is normal.. LABS: Hgb 15.7, hct 45, WBC 5,600 normal differential. ASSESSMENT: 1. Shortness of breath etiology likely COPD sedentary lifestyle and BMI 31 2. Peripheral arterial disease with intervention on the right femoral artery 3. Smoking 4. Chronic lung disease 5. Hypertension, borderline RECOMMENDATIONS: 1. The patient had echocardiogram done which showed increased RV cavity size other normal LV contractility 2. Stress echo non diagnostic. Heart rate from 75 went up to 115 with no change in the ST-T waves and no chest pain. LV contractility was normal. The patient's test was nondiagnostic. Limiting factor with claudication of the both lower extremity. 3. Dobutamine stress echo sestamibi to be done as an outpatient. 4. Lipid profile pending 5. PFT showed that patient has moderate to severe chronic lung disease The patient's condition is stable for now. Thanks for referral will follow. GUERDA
--- NOTE | 2017-04-22 14:37 | CONS ---
DATE OF CONSULTATION: 04/20/17 REASON FOR CONSULTATION: Fatigue, shortness of breath and leg swelling HISTORY OF PRESENT ILLNESS: 57 year old white male was admitted directly by the attending physician with the above complaints. According to the and the patient he hasn't been feeling good for past couple of months with shortness of breath with minimal exertion and fatigue with leg edema. The patient has history of peripheral arterial disease requiring intervention nearly 4 years ago with stent placement on the right femoral artery. The patient denied of any exertional chest discomfort. REVIEW OF SYSTEMS: CONSTITUTIONAL: No night sweats. Fatigue and weakness. No fever or chills. HEENT: Eyes: No visual changes. No eye pain. No eye discharge. ENT: No sinus drainage. No epistaxis. No sinus pain. No sore throat. No odynophagia. No ear pain. No congestion. RESPIRATORY: Cough with greenish sputum production. No hemoptysis. Shortness of breath. CARDIOVASCULAR: No angina symptoms. No CHF symptoms. No atypical chest pain for CAD. No palpitations. No orthopnea. No exertional chest pain but short of breath. GASTROINTESTINAL: No abdominal pain. No nausea or vomiting. No diarrhea or constipation. No hematemesis. No hematochezia. GENITOURINARY: No urgency. No frequency. No dysuria. No hematuria. No obstructive symptoms. No discharge. No pain. No significant abnormal bleeding. MUSCULOSKELETAL: No musculoskeletal pain. No joint swelling. NEUROLOGICAL: No headache. No neck pain. No syncope. No seizures. No dizziness. PSYCHIATRIC: Not anxious. No depression. No suicidal thoughts. No homicidal thoughts. SKIN: No rash. No lesions. No wounds. ENDOCRINE: No unexplained weight loss. No weight gain. HEMATOLOGIC/LYMPHATIC: No anemia. No purpura. No petechiae. No prolonged or excessive bleeding. No palpable lymph nodes. MEDICATIONS: Albuterol two puffs Four times a day Cardilol 25mg twice a day Flexeril 10mg twice a day Flonase nasal spray one in each nostril twice a day Plavix 75mg PO daily Oxycodone 10-325mg twice a day PRN Ventolin HFA two puffs PRN Albuterol Nebulizer two inhalations four times a day as needed ALLERGIES: None PAST MEDICAL HISTORY/PAST SURGICAL HISTORY: Peripheral arterial disease Chronic lung disease Smoking Femoral artery stents Status post back surgery 2-3 years ago SOCIAL/PERSONAL/FAMILY HISTORY: The patient is heavy smoker for past 30 years. No alcohol abuse. Retired disabled from back surgery. Lives with the . He does all activity of daily living. PHYSICAL EXAMINATION: GENERAL: The patient is oriented to time, place and person. VITAL SIGNS: Temperature 97.4, pulse 70, respiratory rate 14, blood pressure 100 /62 and pulse ox 98%. HEENT: Head normocephalic, atraumatic. Eyes: Extraocular muscles are intact. Pupils are equal, round and reactive to light and accommodation. Ears: No lesions. Nose appeared normal. Throat: No exudate or erythema. NECK: Supple. No JVP, no carotid bruit. No lymphadenopathy or thyromegaly. LUNGS: Decreased breath sounds with mild wheeze. Clear to auscultation. Percussion note normal. Chest symmetrical. HEART: S1, S2, no S3. No murmurs. No cyanosis or clubbing. No ascites. Pulses: Dorsalis pedis and posterior tibial pulses +1 to +2 both sides. ABDOMEN: Soft. Nontender. Bowel sounds active. No CVA tenderness. No mass felt. EXTREMITIES: Trace edema. Full range of motion of all extremities, equal. Very feeble pulses if at all I couldn't feel them. NEUROLOGIC: No focal deficit. Cranial nerves II through XII are grossly intact. No headache, no double vision or headache. SKIN: Somewhat dry. Intact. Turgor - normal. LYMPHATIC: No palpable lymph nodes/no lymphedema. MUSCULOSKELETAL: Normal joints with no swelling. Muscle tone is normal. LABS: EKG sinus rhythm; nonspecific ST-T wave change. HGb 15, hct 45, WBC 8,600 normal differential, creatinine 0.8, BUN 8, potassium 4.3, telemetry sinus rhythm no ST-T wave change. I did echocardiogram which showed normal LV contractility, enlarged RV cavity. Labs are normal ASSESSMENT: 1. Shortness of breath, multifactorial. Could be sedentary lifestyle with BMI of 31 2. History of heavy smoking with COPD 3. Coronary artery disease asymptomatic 4. Peripheral arterial disease with intervention on right femoral artery 5. Obesity with BMI of 31 6. Status post back surgery RECOMMENDATIONS: 1. Given 1cc Decadron for wheezing 2. Lipid profile 3. TSH 4. Will do PFT 5. Echo already done and will do stress echo. 6. The patient had Dobutamine Stress echo and regular stress echo in one of the [facility] several years ago. 7. Continue Telemetry 8. Continue the rest of the medication as prescribed in the room and discussed about different possibilities. Case discussed with attending. Thank you very much for referral. Will follow. GUERDA
--- NOTE | 2017-04-24 09:18 | DS ---
PATIENT IDENTIFICATION: 57 year old male who was admitted to the hospital because of severe fatigue, edema of both feet and legs, shortness of breath with minimal exertion, chest pain intermittent in the past and severe peripheral arterial disease involving both lower extremities with claudication. The patient had two angioplasties of the right lower extremity with stent and still the patient has some symptoms of claudication and there are no arterial pulsations in both feet. The patient also had a very strong family history of cardiovascular disease. Father had CVA, mother had myocardial infarction and . Father had diabetes mellitus. The patient is still smoking, although he had been advised many times to stop the habit. HOSPITAL COURSE: The patient while in the hospital had the following investigations done, CBC essentially normal. Arterial blood gases showing moderate hypoxemia with hypercarbia and oxygen saturation 93, PCO2 52.7, PO2 69 , FIO2 21. Blood sugar 141, A1C 6.4, Troponin normal, CK normal, lipid abnormal , mild, TSH normal. Plasma C-Peptid 3.4, fasting insulin 13.4, both are within normal. The patient was seen by Dr. Sims, Finishing Pan Operator and performed a stress echo. The echocardiogram 2 D M mode showed normal valves, normal chamber size, wall motion and pericardium. Normal left ventricular contractility. Left ventricular ejection fraction 58%, normal. Stress done diagnostic for ST T wave changes, target heart rate not obtained. No chest pain or discomfort during exercise and no arrhythmia. The patient will be scheduled for stress sestamibi as an out patient. I had discussed this with Dr. Sims, the consulting air value tester. The patient at the time of discharge was advised that the echocardiogram is normal. The stress test does not tell us very much since he did not reach the target heart rate. He will be scheduled further by Dr. Sims this coming Friday for stress sestamibi. The patient had a good understanding. I did tell him that he needs to stop smoking regardless. The reason is he already is taking a medication for COPD. He has severe peripheral arterial disease that had been treated. He has a very strong family history for heart and blood vessel problems. I don't believe that he is very much concerned about his health, although his lung problems now is significant since he now retaining CO2 and I explain that to him. He told me that some how one is going to and so he is not going to change his habit. I did tell him that there is a difference between crawling to the finish line or walking to the finish line. He may drop , but at least he felt well and you are not disabled. Compared to that one who is bringing an oxygen tank where ever he or she has to go because of the shortness of breath. I call that crawling to the finish line instead of walking or jogging. He is scheduled for the stress sestamibi this coming Friday and emphasized that he should have it done. I told him that if that is negative then I believe that the fatigue is secondary to deconditioning, as well as his lung problems and continued smoking, as well as leg problems. LUNGS: Diminished breath sounds in both sides. No rales or wheezing. FINAL DIAGNOSES: 1. EXTREME FATIGUE, PERSISTENT, ETIOLOGY UNDETERMINED 2. PERIPHERAL ARTERIAL DISEASE, SEVERE WITH DILATATION AND STENT APPLICATION RIGHT LOWER EXTREMITY 3. CHRONIC LUMBAR PAIN 4. HISTORY OF INTERMITTENT CHEST PAIN 5. CHRONIC OBSTRUCTIVE PULMONARY DISEASE WITH NOCTURNAL OXYGEN SUPPLEMENTATION 6. HYPERCARBIA 7. CHRONIC TOBACCO USE AND ABUSE, PERSISTENT 8. FAILED BACK SURGERY SYNDROME 9. HYPOXEMIA 10. DIABETES MELLITUS, NOT ON MEDICATION The patient was advised about the food that he needs to eat and avoid processed foods. JESSICAD
--- NOTE | 2017-04-24 13:28 | PN ---
CODING FOR BILLING INITIAL CONSULT 04/20/17 LEVEL 5 FOLLOWUP 04/21/17 EXTENSIVE CC: HERSON CROFT
== END 2017-04-21 17:00 | disposition home or self-care (01) | DRG 948 ==
LOC: MEDSURG B 17:19
PROVIDERS: ADMIT General Practice; ATTEND General Practice
DX: R53.83 Other fatigue (principal); I73.9 Peripheral vascular disease, unspecified; G89.29 Other chronic pain; M54.5 Low back pain; R07.9 Chest pain, unspecified; J44.9 Chronic obstructive pulmonary disease, unspecified; Z99.81 Dependence on supplemental oxygen; R06.89 Other abnormalities of breathing; Z72.0 Tobacco use; R09.02 Hypoxemia; E11.9 Type 2 diabetes mellitus without complications; Z86.718 Personal history of other venous thrombosis and embolism; Z79.01 Long term (current) use of anticoagulants; R06.02 Shortness of breath; R60.9 Edema, unspecified
CPT/HCPCS: 36415; 80053; 80061; 81001; 82550; 82803; 83036; 83525; 84443; 84484; 84681; 85025; 93005; 93010; 97802; 99223; 99232; 99233; 99239

== ENCOUNTER 2017-04-23 06:30 | Outpatient (CLI) | payer OTHER ==
[2017-04-23] MEDS ORDERED: DOBUTAMINE 250 ML IV ONE (07:30)
[2017-04-23] MEDS ORDERED: ATROPINE SULFATE PFS ONE (07:31)
--- NOTE | 2017-04-23 09:47 | NM ---
EXAM: Myocardial perfusion imaging HISTORY: Shortness of breath COMPARISON: None. TECHNIQUE: Patient was injected 3.6 mCi of thallium 201 chloride intravenously while at rest. Cardia c SPECT was then acquired. Patient was stressed using dobutamine protocol and injected 25.3 mCi of Tc 99m Sestamibi intravenously. Another SPECT imaging of the heart was performed. Gated cardiac study was also acquired. FINDINGS: Post stress study shows mildly dilated left ventricular cavity. There is reduced perfusion in the region of the inferior apical segment of the left ventricle. This shows no reperfusion. Ant erior wall, septum and lateral correa show normal perfusion. Left ventricular ejection fraction is 54 %. No significant wall motion abnormality is seen. IMPRESSION: 1. SPECT myocardial imaging shows no evidence of reversible ischemia. 2. Slightly reduced perfusion in the region of the inferior apical segment. No change on delayed im aging. This could be due to old injury or diaphragmatic attenuation. 3. Mildly dilated left ventricle with ejection fraction of 54%. No definite wall motion abnormality .
== END 2017-04-23 06:31 | disposition home or self-care (01) ==
LOC: CAR 06:30
PROVIDERS: ATTEND General Practice
DX: R06.02 Shortness of breath (principal); R60.9 Edema, unspecified; E78.5 Hyperlipidemia, unspecified; R53.1 Weakness; R94.39 Abnormal result of other cardiovascular function study

== ENCOUNTER 2017-09-09 11:55 | Outpatient (CLI) | payer OTHER | END 2017-09-09 11:56 | disposition home or self-care (01) | LOC: FCC-LAB 11:55 | PROVIDERS: ATTEND General Practice | DX: J44.9 Chronic obstructive pulmonary disease, unspecified (principal); R06.02 Shortness of breath; I10 Essential (primary) hypertension; Z72.0 Tobacco use; Z79.899 Other long term (current) drug therapy | CPT/HCPCS: 36415; 80053; 80061; 81001; 83880; 85025 ==

== ENCOUNTER 2017-09-12 16:25 | Outpatient (CLI) | payer OTHER | END 2017-09-12 16:26 | disposition home or self-care (01) | LOC: FCC-LAB 16:25 | PROVIDERS: ATTEND General Practice | DX: R73.9 Hyperglycemia, unspecified (principal); R53.83 Other fatigue; I10 Essential (primary) hypertension | CPT/HCPCS: 36415; 83037 ==

== ENCOUNTER 2017-09-15 09:42 | Outpatient (CLI) | END 2017-09-15 09:43 | disposition home or self-care (01) | LOC: FCC-LAB 09:42 | PROVIDERS: ATTEND General Practice | DX: R73.03 Prediabetes (principal); I10 Essential (primary) hypertension; E03.8 Other specified hypothyroidism | CPT/HCPCS: 36415; 80069; 83037; 83525; 84443; 84681 ==

== ENCOUNTER 2017-10-15 11:57 | Outpatient (POV) | END 2017-10-15 11:58 | disposition home or self-care (01) | LOC: LAB 11:57 | PROVIDERS: ATTEND General Practice | DX: E78.5 Hyperlipidemia, unspecified (principal); E11.9 Type 2 diabetes mellitus without complications ==

== ENCOUNTER 2017-10-20 15:46 | Outpatient (CLI) ==
--- NOTE | 2017-10-20 16:35 | DI ---
EXAM: Chest PA and lateral HISTORY: Cough. COMPARRISON: 11/26/2015. 04/18/2017. FINDINGS: The heart is normal in size. Pulmonary vascularity is within normal limits. No focal airspa ce opacity or pleural effusion is seen. Osseous structures are unremarkable. IMPRESSION: No acute cardiopulmonary findings.
== END 2017-10-20 15:47 | disposition home or self-care (01) ==
LOC: RAD 15:46
PROVIDERS: ATTEND General Practice
DX: R05 Cough (principal); H92.02 Otalgia, left ear; R68.83 Chills (without fever)
CPT/HCPCS: 36415; 80069; 85025; 87040

== ENCOUNTER 2017-10-27 10:31 | Outpatient (CLI) | END 2017-10-27 10:32 | disposition home or self-care (01) | LOC: FCC-LAB 10:31 | PROVIDERS: ATTEND General Practice | DX: H92.02 Otalgia, left ear (principal); H92.12 Otorrhea, left ear | CPT/HCPCS: 87070; 87186 ==

== ENCOUNTER 2017-11-04 13:24 | Outpatient (POV) | payer OTHER | END 2017-11-04 17:00 | LOC: OUTPT 13:24 | PROVIDERS: ATTEND Otolaryngology | DX: H91.90 Unspecified hearing loss, unspecified ear (principal) ==

== ENCOUNTER 2017-11-18 14:42 | Outpatient (POV) | END 2017-11-18 17:00 | LOC: OUTPT 14:42 | PROVIDERS: ATTEND Otolaryngology | DX: H91.90 Unspecified hearing loss, unspecified ear (principal) ==

== ENCOUNTER 2017-12-10 14:18 | Outpatient (CLI) | payer OTHER | END 2017-12-10 14:19 | disposition home or self-care (01) | LOC: RHC-LAB 14:18 | PROVIDERS: ATTEND Otolaryngology | DX: H66.90 Otitis media, unspecified, unspecified ear (principal) | CPT/HCPCS: 87070 ==

== ENCOUNTER 2017-12-14 09:05 | Emergency (ER) ==
[2017-12-14 09:10] VITALS: BP 123/80; TEMP 98.5; BMI 31.2
--- NOTE | 2017-12-14 09:49 | ED.PDOC ---
General ED Provider: Dr. MELINDA LOYA Chief Complaint: Bite Stated Complaint: insect bite Time Seen by Physician: 09:10 (seen with ADAM) Mode of Arrival: Walk-In Information Source: Patient Exam Limitations: No limitations [facility] and Triage Documentation Reviewed and Agree: Yes Does patient meet sepsis criteria?: Yes If yes, has appropriate treatment been initiated?: No System Inflammatory Response Syndrome: Not Applicable Sepsis Protocol: For patient's 13 years and over: Temp is 96.8 and below OR 101 and greater Pulse >90 BPM Resp >20/minute Acutely Altered Mental Status Are patient's symptoms suggestive of a new infection, such as: -Pneumonia -Skin, Soft Tissue -Endocarditis -UTI -Bone, Joint Infection -Implantable Device -Acute Abdominal Infection -Wound Infection -Meningitis -Blood Stream Catheter Infection -Unknown Skin Complaint Exam - Skin/Soft Tissue Complaint/Exam Onset/Duration: right foot possible insect bite Symptoms Are: Still present Timing: Constant Initial Severity: Mild Current Severity: Mild Character: Reports: Redness Aggravating: Reports: None Alleviating: Reports: None (see photos) Associated Signs and Symptoms: Denies: Fever, Chills, Itching, Drainage, Bruising, Tenderness, Red streaks, Joint swelling Related History: Reports: Similar episode Related Surgical History: Reports: None Skin Findings: Present: Erythema (left fott dorsum is iflammed see photos) Review of Systems - Review Of Systems Constitutional: Reports: No symptoms Eyes: Reports: No symptoms Ears, Nose, Mouth, Throat: Reports: No symptoms Respiratory: Reports: No symptoms Cardiac: Reports: No symptoms GI: Reports: No symptoms : Reports: No symptoms Musculoskeletal: Reports: No symptoms Skin: Reports: Rash (see photos) Neurological: Reports: No symptoms Endocrine: Reports: No symptoms Hematologic/Lymphatic: Reports: No symptoms All Other Systems: Reviewed and Negative Past Medical History - Past Medical History Previously Healthy: Yes Endocrine: Reports: None Cardiovascular: Reports: Hypertension Respiratory: Reports: COPD Hematological: Reports: None Gastrointestinal: Reports: None Genitourinary: Reports: None Neuro/Psych: Reports: None Musculoskeletal: Reports: None Cancer: Reports: None - Surgical History General Surgical History: Reports: Back Surgery - Family History Family History: Reports: Unknown - Social History Smoking Status: Current every day smoker Hx Substance Use: No Alcohol Screening: None - Immunizations Tetanus Shot up to Date: Yes Physical Exam - Physical Exam Appearance: Well-appearing, No pain distress, Well-nourished Eyes: NEMESIO, EOMI, Conjunctiva clear ENT: Ears normal, Nose normal, Oropharynx normal Respiratory: Airway patent, Breath sounds clear, Breath sounds equal, Respirations nonlabored Cardiovascular: RRR, Pulses normal, No rub, No murmur GI/: Soft, Nontender, No masses, Bowel sounds normal, No Organomegaly Musculoskeletal: Normal strength, ROM intact, No edema, No calf tenderness Skin: Warm, Dry (rash right foot) Neurological: Sensation intact, Motor intact, Reflexes intact, Cranial nerves intact, Alert, Oriented Psychiatric: Affect appropriate, Mood appropriate Critical Care Note - Critical Care Note Total Time (mins): 0 Course - Course Vital Signs: Temp Pulse Resp BP Pulse Ox 12/14/17 09:06 98.5 F 88 16 123/80 92 L Departure - Departure Time of Disposition: 09:53 Disposition: HOME SELF-CARE Discharge Problem: Rash Insect bite Qualifiers: Encounter type: initial encounter Qualified Code(s): W57.XXXA - Bitten or stung by nonvenomous insect and other nonvenomous arthropods, initial encounter Instructions: Insect Bite or Sting (ED), Acute Rash (ED) Condition: Good Pt referred to PMD for follow-up: Yes IPMP verified?: No Additional Instructions: Please call your Family Physician as soon as possible to schedule a follow-up appointment. Allergies/Adverse Reactions: Allergies No Known Allergies Allergy (Unverified 12/14/17 09:13) Home Medications: Ambulatory Orders Albuterol Sulfate 0.083% Neb [Albuterol 0.083% Neb] 1 vial NEB RTQ6H PRN Cyclobenzaprine HCl 10 mg PO BID PRN 12/08/16 Clarithromycin 500 mg PO BID 12/02/17 Carvedilol 25 mg PO BID #180 tab-cap 12/10/17 Finasteride 5 mg PO DAILY 12/14/17
== END 2017-12-14 10:02 | disposition home or self-care (01) ==
LOC: ED 09:05
DX: S90.861A Insect bite (nonvenomous), right foot, initial encounter (principal); L53.9 Erythematous condition, unspecified; W57.XXXA Bitten or stung by nonvenomous insect and other nonvenomous arthropods, initial encounter
CPT/HCPCS: 99282

== ENCOUNTER 2018-01-05 16:49 | Outpatient (CLI) | payer OTHER ==
--- NOTE | 2018-01-06 08:18 | DI ---
EXAM: Three views of the right foot. History: Skin lesion of the medial anterior foot. Comparison: Right foot radiograph 12/18/2017 Findings: No acute fracture or dislocation. Mild to moderate narrowing of the first MTP joint with marginal sclerosis and osteophyte formation. There is cystic changes within the first metatarsal hea d with adjacent soft tissue swelling. Tiny plantar spur. Seen on the dorsal view there are soft tis ale calcifications associated with the first MTP joint. Impression: 1. No acute osseous abnormality. 2. Osteoarthritis of first MTP joint with cystic changes and soft tissue calcifications. Correlate for gout.
== END 2018-01-05 16:50 | disposition home or self-care (01) ==
LOC: RAD 16:49
PROVIDERS: ATTEND General Practice
DX: M79.89 Other specified soft tissue disorders (principal)

== ENCOUNTER 2018-01-08 12:00 | Outpatient (CLI) ==
--- NOTE | 2018-01-08 16:31 | MRI ---
EXAM: MRI of the right forefoot without contrast COMPARISON: Right foot radiographs 01/05/2018. MRI of the right forefoot 12/18/2017. HISTORY: Cellulitis, follow-up study. TECHNIQUE: Multiplanar noncontrast MR images of the right forefoot and midfoot were acquired using a 1.2 Zunilda magnet. FINDINGS: There is subcutaneous edema and ill-defined subcutaneous fluid throughout the midfoot and forefoot most extensive along the medial and dorsal aspect of the forefoot. This is consistent with cellulitis. There is a gel capsule indicating the site of clinical concern along the dorsal medial a spect of the mid shaft of the first metatarsal with suspected superficial soft ulcer at that location though without a definite drainable abscess. There is no evidence of acute osteomyelitis. There is marked osteoarthrosis of the first metatarsophalangeal joint with extensive cystic degenerat caitlin changes throughout the head and neck of the metatarsal and tibial sesamoid. Chronic-appearing er osions involving the distal first metatarsal which may represent sequela of gout. Mild degenerative s purring at the remainder metatarsophalangeal joints as well as at the level of the interphalangeal elizabeth ints. Trace metatarsophalangeal joint effusions. Intact Lisfranc ligament fibers are identified. Mu scle atrophy. Intramuscular edema related to sequela denervation and/or myositis. No full-thickness tendon tear or tendon retraction. IMPRESSION: 1. Cellulitis. Superficial soft tissue ulcer along the dorsal and medial aspect of the first metata rsal shaft without a drainable abscess. No evidence of acute osteomyelitis. 2. Osteoarthrosis. Chronic-appearing erosive changes of the first metatarsal head which may represe nt sequela of gout and clinical correlation is recommended. Small joint effusions. 3. Sequela of muscle denervation and/or myositis.
== END 2018-01-08 12:01 | disposition home or self-care (01) ==
LOC: RHC-LAB 12:00
PROVIDERS: ATTEND General Practice
DX: L03.115 Cellulitis of right lower limb (principal); J44.9 Chronic obstructive pulmonary disease, unspecified; I10 Essential (primary) hypertension; S90.861D Insect bite (nonvenomous), right foot, subsequent encounter; Z79.899 Other long term (current) drug therapy
CPT/HCPCS: 36415; 80053; 80061; 81001; 83036; 85025

== ENCOUNTER 2018-01-12 10:28 | Outpatient (CLI) | END 2018-01-12 10:29 | disposition home or self-care (01) | LOC: RHC-LAB 10:28 | PROVIDERS: ATTEND General Practice | DX: S90.861D Insect bite (nonvenomous), right foot, subsequent encounter (principal); L08.9 Local infection of the skin and subcutaneous tissue, unspecified; W57.XXXD Bitten or stung by nonvenomous insect and other nonvenomous arthropods, subsequent encounter | CPT/HCPCS: 87070 ==

== ENCOUNTER 2018-03-13 16:02 | Emergency (ER) | payer OTHER ==
[2018-03-13 16:08] VITALS: BP 114/75; TEMP 97; BMI 29.6
--- NOTE | 2018-03-13 16:46 | DI ---
EXAM: Chest two views HISTORY: Cough COMPARISON: 10/20/2017 TECHNIQUE: Two views of the chest were performed FINDINGS: The lungs are clear. There is no pleural effusion or pneumothorax. The heart is normal i n size. The mediastinal contour is normal. There are no acute abnormalities of the bones. IMPRESSION: No acute cardiopulmonary process.
--- NOTE | 2018-03-13 17:23 | ED.PDOC ---
General ED Provider: Dr. MELINDA LOYA Chief Complaint: Respiratory Complaint Stated Complaint: cough, congestion Time Seen by Physician: 16:10 (seen with joy at all times no shortness of breath smokes 1pk/day) Mode of Arrival: Walk-In Information Source: Patient Exam Limitations: No limitations Primary Care Provider[facility] Nursing and Triage Documentation Reviewed and Agree: Yes Does patient meet sepsis criteria?: No System Inflammatory Response Syndrome: Not Applicable Sepsis Protocol: For patient's 13 years and over: Temp is 96.8 and below OR 101 and greater Pulse >90 BPM Resp >20/minute Acutely Altered Mental Status Are patient's symptoms suggestive of a new infection, such as: -Pneumonia -Skin, Soft Tissue -Endocarditis -UTI -Bone, Joint Infection -Implantable Device -Acute Abdominal Infection -Wound Infection -Meningitis -Blood Stream Catheter Infection -Unknown Respiratory Complaint Exam - Respiratory Complaint/Exam Onset/Duration: 2 days Symptoms Are: Resolved Timing: Intermittent Initial Severity: Moderate Current Severity: Mild Location: Nose, Throat, Chest Character: Reports: Non-productive cough, Dry cough Aggravating: Reports: URI Alleviating: Reports: Spontaneous resolution Associated Signs and Symptoms: Reports: URI, Nasal congestion. Denies: Rapid breathing, Dyspnea, Fever, Chills, Chest pain, Pleuritic chest pain, Wheezing, Hemoptysis, Dizziness, Calf pain, Calf swelling, Edema, Hoarseness, Sinus discomfort, Vomiting, Sore throat, Weight loss, Decreased oral intake, Increased thirst, Increased appetite, Increased urination History of Healthcare-Acquired Pneumonia: No Related Surgical History: Reports: None Pulmonary Embolism Risk Factors: Smoking (1 pk/day) Cardiac Risk Factors: Reports: Smoking Pseudomonas Risk Factors: Reports: None Tuberculosis Risk Factors: Reports: None Status Asthmaticus Risk Factors: Reports: None Home Oxygen Use: No Recent Stress Test: No Recent Echo/LV Function: No Current Antibiotic Use: No Current Asthma Medication Use: No Respiratory Distress: None Inadequate Respiratory Effort: No Dysphagia Present: No Stridor Present: No JVD Present: No Accessory Muscle Use: No Retractions: Not Present Differential Diagnoses: Pneumonia, Bronchitis Review of Systems - Review Of Systems Constitutional: Reports: No symptoms Eyes: Reports: No symptoms Ears, Nose, Mouth, Throat: Reports: No symptoms Respiratory: Reports: Cough Cardiac: Reports: No symptoms GI: Reports: No symptoms : Reports: No symptoms Musculoskeletal: Reports: No symptoms Skin: Reports: No symptoms Neurological: Reports: No symptoms Endocrine: Reports: No symptoms Hematologic/Lymphatic: Reports: No symptoms All Other Systems: Reviewed and Negative Past Medical History - Past Medical History Previously Healthy: Yes Endocrine: Reports: None Cardiovascular: Reports: Hypertension Respiratory: Reports: COPD Hematological: Reports: None Gastrointestinal: Reports: None Genitourinary: Reports: None Neuro/Psych: Reports: None Musculoskeletal: Reports: None Cancer: Reports: None - Surgical History General Surgical History: Reports: Back Surgery - Family History Family History: Reports: Unknown - Social History Smoking Status: Current every day smoker, Heavy tobacco smoker Hx Substance Use: No Alcohol Screening: None Physical Exam - Physical Exam Appearance: Well-appearing, No pain distress, Well-nourished Eyes: NEMESIO, EOMI, Conjunctiva clear ENT: Ears normal, Nose normal, Oropharynx normal Respiratory: Rhonchi Cardiovascular: RRR, Pulses normal, No rub, No murmur GI/: Soft, Nontender, No masses, Bowel sounds normal, No Organomegaly Musculoskeletal: Normal strength, ROM intact, No edema, No calf tenderness Skin: Warm, Dry, Normal color Neurological: Sensation intact, Motor intact, Reflexes intact, Cranial nerves intact, Alert, Oriented Psychiatric: Affect appropriate, Mood appropriate Interpretation - Radiology Interpretation Radiology Interpretation By: Radiologist Radiology Results: No acute changes Critical Care Note - Critical Care Note Total Time (mins): 0 Course - Course Orders, Labs, Meds: Orders Category Date Time Status MOLECULAR GROUP A STREP Stat LAB 03/13/18 16:19 Uncollected CHEST, 2 VIEWS PA & LAT Stat RADS 03/13/18 16:18 Ordered Vital Signs: Temp Pulse Resp BP Pulse Ox 03/13/18 16:03 97 F L 80 20 114/75 93 L Departure - Departure Time of Disposition: 17:23 Disposition: HOME SELF-CARE Discharge Problem: Bronchitis Instructions: Acute Bronchitis (ED) Condition: Good Pt referred to PMD for follow-up: Yes IPMP verified?: No Additional Instructions: Please call your Family Physician as soon as possible to schedule a follow-up appointment. Allergies/Adverse Reactions: Allergies No Known Allergies Allergy (Verified 03/13/18 16:11) Home Medications: Ambulatory Orders Carvedilol 25 mg PO BID #180 tab-cap 12/10/17 Finasteride 5 mg PO DAILY 12/14/17 Disposition Discussed With: Patient
== END 2018-03-13 17:32 | disposition home or self-care (01) ==
LOC: ED 16:02
DX: J40 Bronchitis, not specified as acute or chronic (principal); F17.210 Nicotine dependence, cigarettes, uncomplicated; I10 Essential (primary) hypertension
CPT/HCPCS: 87651; 99283

== ENCOUNTER 2018-04-10 14:54 | Outpatient (CLI) | payer OTHER | END 2018-04-10 14:55 | disposition home or self-care (01) | LOC: RHC-LAB 14:54 | PROVIDERS: ATTEND General Practice | DX: H60.92 Unspecified otitis externa, left ear (principal) | CPT/HCPCS: 87070 ==

== ENCOUNTER 2018-05-23 13:45 | Emergency (ER) | payer OTHER ==
[2018-05-23 13:51] VITALS: BP 115/74; TEMP 97.2; BMI 28.8
--- NOTE | 2018-05-23 14:22 | ED.PDOC ---
General ED Provider: Dr. MOISÉS ZAMORA Chief Complaint: Rash Stated Complaint: multiple complaints.Mainly shortness of breath,oral candidiasis Time Seen by Physician: 15:00 Mode of Arrival: Walk-In Information Source: Patient Exam Limitations: No limitations Primary Care Provider: [facility] Nursing and Triage Documentation Reviewed and Agree: Yes Does patient meet sepsis criteria?: No System Inflammatory Response Syndrome: Not Applicable Sepsis Protocol: For patient's 13 years and over: Temp is 96.8 and below OR 101 and greater Pulse >90 BPM Resp >20/minute Acutely Altered Mental Status Are patient's symptoms suggestive of a new infection, such as: -Pneumonia -Skin, Soft Tissue -Endocarditis -UTI -Bone, Joint Infection -Implantable Device -Acute Abdominal Infection -Wound Infection -Meningitis -Blood Stream Catheter Infection -Unknown Respiratory Complaint Exam - Respiratory Complaint/Exam Onset/Duration: ongoing Symptoms Are: Still present Timing: Constant Initial Severity: Moderate Location: Chest Character: Reports: Non-productive cough Aggravating: Reports: None, Deep breaths, Recumbent position. Denies: Exertion Alleviating: Reports: Nasal suction Associated Signs and Symptoms: Reports: Increased urination Related History: Reports: Similar episode Related Surgical History: Denies: Tracheostomy Tuberculosis Risk Factors: Reports: None Status Asthmaticus Risk Factors: Reports: Prior ICU admit Home Oxygen Use: No Home Peak Flow: Most recent Recent Stress Test: No Recent Echo/LV Function: No Current Antibiotic Use: No Current Asthma Medication Use: No JVD Present: No Diminished Breath Sounds: No Kussmaul Respirations: No Differential Diagnoses: Airway Obstruction, Asthma Review of Systems - Review Of Systems Constitutional: Reports: Malaise, Other Eyes: Reports: No symptoms Ears, Nose, Mouth, Throat: Reports: No symptoms Respiratory: Reports: Cough, Orthopnea Cardiac: Reports: No symptoms GI: Reports: No symptoms : Reports: No symptoms Musculoskeletal: Reports: No symptoms Skin: Reports: Rash Neurological: Reports: No symptoms Endocrine: Reports: No symptoms Hematologic/Lymphatic: Reports: No symptoms All Other Systems: Reviewed and Negative Past Medical History - Past Medical History Previously Healthy: Yes Endocrine: Reports: None Cardiovascular: Reports: Hypertension Respiratory: Reports: COPD Hematological: Reports: None Gastrointestinal: Reports: None Genitourinary: Reports: None Neuro/Psych: Reports: None Musculoskeletal: Reports: None Cancer: Reports: None - Surgical History General Surgical History: Reports: Back Surgery - Family History Family History: Reports: Unknown - Social History Smoking Status: Current every day smoker, Heavy tobacco smoker Hx Substance Use: No Alcohol Screening: None Physical Exam - Physical Exam Appearance: Well-appearing Ill-appearing: Mild Pain Distress: None Eyes: NEMESIO ENT: Ears normal Respiratory: Airway patent Cardiovascular: RRR GI/: Soft Musculoskeletal: Limited ROM Neurological: Sensation intact, Cranial nerves intact Psychiatric: Affect appropriate Critical Care Note - Critical Care Note Total Time (mins): 0 Course - Course Hematology/Chemistry: 05/23/18 14:45 05/23/18 14:45 Orders, Labs, Meds: Lab Review 05/23/18 05/23/18 05/23/18 14:45 14:45 14:45 WBC 11.57 H RBC 4.99 Hgb 15.4 Hct 47.0 MCV 94.2 H MCH 30.9 MCHC 32.8 RDW Coeff of Ricardo 13.2 Plt Count 344 Immature Gran % (Auto) 0.3 Neut % (Auto) 69.5 Lymph % (Auto) 18.5 [place] % (Auto) 9.0 Eos % (Auto) 2.4 Baso % (Auto) 0.3 Immature Gran # (Auto) 0.0 Neut # (Auto) 8.0 H Lymph # (Auto) 2.1 [place] # (Auto) 1.0 Eos # (Auto) 0.3 Baso # (Auto) 0.0 Sodium 135.7 Potassium 4.42 Chloride 100.1 Carbon Dioxide 30.3 H Anion Gap 9.72 BUN 12.7 Creatinine 0.78 Estimated GFR (MDRD) 102.00 BUN/Creatinine Ratio 16.28 Glucose 163.4 H Lactic Acid 1.23 Calcium 9.25 Total Bilirubin 0.88 AST 26.8 ALT 17.9 Alkaline Phosphatase 85.7 NT-Pro-B Natriuret Pep Total Protein 6.98 Albumin 3.94 Globulin 3.04 Albumin/Globulin Ratio 1.29 Urine Color Urine Clarity Urine pH Ur Specific [place] Urine Protein Urine Glucose (UA) Urine Ketones Urine Blood Urine Nitrite Urine Bilirubin Urine Urobilinogen Ur Leukocyte Esterase Urine Microscopic RBC Urine Microscopic WBC Ur Squamous Epith Cells Urine Bacteria Urine Mucus 05/23/18 05/23/18 14:45 14:45 WBC RBC Hgb Hct MCV MCH MCHC RDW Coeff of Ricardo Plt Count Immature Gran % (Auto) Neut % (Auto) Lymph % (Auto) [place] % (Auto) Eos % (Auto) Baso % (Auto) Immature Gran # (Auto) Neut # (Auto) Lymph # (Auto) [place] # (Auto) Eos # (Auto) Baso # (Auto) Sodium Potassium Chloride Carbon Dioxide Anion Gap BUN Creatinine Estimated GFR (MDRD) BUN/Creatinine Ratio Glucose Lactic Acid Calcium Total Bilirubin AST ALT Alkaline Phosphatase NT-Pro-B Natriuret Pep 67.000 Total Protein Albumin Globulin Albumin/Globulin Ratio Urine Color [place] Urine Clarity Clear Urine pH 6.0 Ur Specific [place] 1.025 Urine Protein 1+ Urine Glucose (UA) Negative Urine Ketones Trace Urine Blood Negative Urine Nitrite Negative Urine Bilirubin 1+ Urine Urobilinogen 1.0 Ur Leukocyte Esterase Negative Urine Microscopic RBC 2-5 Urine Microscopic WBC 0-2 Ur Squamous Epith Cells 0-2 Urine Bacteria 1+ Urine Mucus 2+ Orders Category Date Time Status EKG-(ED ONLY) Stat CARDIO 05/23/18 14:44 Completed NEBULIZER TREATMENT Stat CARDIO 05/23/18 16:14 Ordered IV [ED IV/MEDIPORT/POWERPORT] .ONCE EMERGENCY 05/23/18 14:43 Active CBC W/ AUTO DIFF Stat LAB 05/23/18 14:45 Completed COMPREHENSIVE METABOLIC PANEL Stat LAB 05/23/18 14:45 Completed LACTIC ACID Stat LAB 05/23/18 14:45 Completed PRO-BNP [NT-PROBNP] Stat LAB 05/23/18 14:45 Completed URINALYSIS WITH MICROSCOPIC Stat LAB 05/23/18 14:45 Completed 0.9 % Sodium Chloride [Saline Flush] MEDS 05/23/18 14:43 Ordered 1 syr IVF PRN PRN Albuterol Sulfate 0.083% Neb [Albuterol 0.083% Neb] MEDS 05/23/18 16:13 Stat 1 vial NEB ONCE STA CHEST, 2 VIEWS PA & LAT Stat RADS 05/23/18 14:30 Completed Medications Generic Name Dose Route Start Last Admin Trade Name Freq PRN Reason Stop Dose Admin Albuterol Sulfate 1 vial 05/23/18 16:13 Albuterol 0.083% Neb NEB 05/23/18 16:14 ONCE STA Sodium Chloride 1 syr 05/23/18 14:43 Saline Flush IVF PRN PRN To flush IV Vital Signs: Temp Pulse Resp BP Pulse Ox 03/16/19 13:47 97.2 F L 90 20 115/74 94 L Departure - Departure Time of Disposition: 16:25 Disposition: HOME SELF-CARE Discharge Problem: Oral pharyngeal candidiasis Instructions: Oral Candidiasis (ED) Condition: Good Pt referred to PMD for follow-up: Yes (follow with PCP to continue treatment- Fluconazole in 1 week,) IPMP verified?: Yes Allergies/Adverse Reactions: Allergies No Known Allergies Allergy (Verified 05/23/18 13:52) Home Medications: Ambulatory Orders Carvedilol 25 mg PO BID #180 tab-cap 12/10/17 Finasteride 5 mg PO DAILY 12/14/17 Disposition Discussed With: Patient, Family
--- NOTE | 2018-05-23 15:01 | DI ---
EXAM: Two views of the chest. History: Short of breath Comparison: Chest radiograph 03/13/2018 Findings: Heart size is within normal limits. No focal consolidation. No appreciable pleural fluid and no pneumothorax. No acute osseous abnormalities. Impression: No acute cardiopulmonary process. No change compared to the prior study
[2018-05-23] MEDS ORDERED: ALBUTEROL 0.083% NEB NEB STA (16:13)
== END 2018-05-23 16:32 | disposition home or self-care (01) ==
LOC: ED 13:45
DX: B37.0 Candidal stomatitis (principal); R06.02 Shortness of breath; R21 Rash and other nonspecific skin eruption; I10 Essential (primary) hypertension; J44.9 Chronic obstructive pulmonary disease, unspecified; F17.210 Nicotine dependence, cigarettes, uncomplicated
CPT/HCPCS: 36415; 80053; 81001; 83605; 83880; 85025; 93005; 93010; 94640; 99283

== ENCOUNTER 2018-06-05 12:38 | Outpatient (CLI) | END 2018-06-05 12:39 | disposition home or self-care (01) | LOC: RHC-LAB 12:38 | PROVIDERS: ATTEND General Practice | DX: R05 Cough (principal); Z79.899 Other long term (current) drug therapy; R06.02 Shortness of breath; Z72.0 Tobacco use; J44.9 Chronic obstructive pulmonary disease, unspecified | CPT/HCPCS: 36415; 80053; 81001; 82550; 84484; 85025; 87502; 87651 ==

== ENCOUNTER 2018-06-05 12:44 | Outpatient (CLI) ==
--- NOTE | 2018-06-05 14:03 | CT ---
EXAM: CT chest without contrast HISTORY: Cough COMPARISON: None TECHNIQUE: CT chest performed without intravenous contrast. Coronal and sagittal reformatted images obtained. FINDINGS: Thyroid and thoracic inlet appear normal. Heart normal in size. No pericardial effusion. Aorta normal in caliber. Esophagus unremarkable. Evaluation for lymphadenopathy limited without c ontrast. No lymphadenopathy identified. Small liver cyst. Stable small low density excluded. Lef t renal lesion measures 1.2 cm and is similar to studies dating to 2010. No acute abnormalities of t he bones. Mild degenerative change in the spine. Central airway patent. Bilateral lower airway thi ckening. No airspace consolidation. No pleural effusion. No pneumothorax. Granulomatous calcifica tion. IMPRESSION: 1. Bilateral lower airway thickening, suggesting small airways infection/inflammation. 2. Findings of old granulomatous disease.
== END 2018-06-05 12:45 | disposition home or self-care (01) ==
LOC: RAD 12:44
PROVIDERS: ATTEND General Practice
DX: R05 Cough (principal); Z79.899 Other long term (current) drug therapy; R06.02 Shortness of breath; Z72.0 Tobacco use; J44.9 Chronic obstructive pulmonary disease, unspecified
CPT/HCPCS: 36415; 80053; 81001; 82550; 84484; 85025

== ENCOUNTER 2018-08-28 07:54 | Outpatient (CLI) ==
--- NOTE | 2018-08-28 08:47 | MAMMO ---
EXAM: Bilateral digital diagnostic mammogram (2-D and 3-D) History: Left breast palpable abnormality. Technique: MLO and CC views of bilateral breasts demonstrate predominately fatty replaced breast par enchyma. CAD was reviewed by the radiologist. Tomosynthesis was performed. There is an asymmetry w ithin the subareolar left breast. This correlates with the palpable abnormality. No suspicious micr ocalcifications. Impression: Indeterminate left breast subareolar asymmetry. Recommend further evaluation with ultra sound. BI-RADS 0, incomplete further evaluation is needed
--- NOTE | 2018-08-28 08:51 | US ---
EXAM: Left breast ultrasound. History: Left breast asymmetry and mass. Comparison: Bilateral mammogram 08/28/2018 Technique: Multiple sonographic images through the left breast were obtained. Color duplex Doppler was used to interrogate vascular flow. Findings: Irregular hypoechoic areas seen within the left subareolar region. This correlates with m ammography and with the palpable event. No other abnormalities. Impression: Benign left breast gynecomastia. Recommend followup with ACR/ACS guidelines. BI-RADS 2
--- NOTE | 2018-08-28 10:17 | US ---
EXAM: Renal ultrasound. History: Follow-up left renal mass. Comparison: Renal ultrasound 10/25/2016 Technique: Multiple sonographic images through the kidneys were obtained. Color duplex Doppler was used to interrogate vascular flow. Findings: The bladder was not well distended. No focal bladder wall thickening. The liver is echogenic. The right kidney measures 11.5 cm in long length demonstrating normal cortical echogenicity without e vidence for hydronephrosis, mass or shadowing calculus. The left kidney measures 11.7 cm in long length demonstrating normal cortical echogenicity without ev idence for hydronephrosis, mass or shadowing calculus. Impression: 1. No renal masses identified by ultrasound. 2. No hydronephrosis. 3. Hepatic steatosis
== END 2018-08-28 07:55 | disposition home or self-care (01) ==
LOC: RAD 07:54
PROVIDERS: ATTEND Nurse Practitioner
DX: N63.42 Unspecified lump in left breast, subareolar (principal); N28.1 Cyst of kidney, acquired